=== PATIENT | female | born 1950 | race Caucasian/White ===

== ENCOUNTER 2019-12-04 20:59 | Emergency (ER) | payer OTHER, MEDICAID ==
[~2019-12-04] VITALS: Ht 162.6 cm; Wt 45.0 kg
[~2019-12-04 20:59] MED LIST: ALPR0.5T PO; ATOR20TA58 PO; CELE100C PO; DULO30CA2 PO; FLUO20CA16 PO; GABA-585 PO; HYDR-2765 PO; METH5TAB12 PO; NORG1TAB38 PO; OMEP40CA45 PO; RANI300C PO
[2019-12-04 21:19] VITALS: BP 150/89
[2019-12-04] MEDS ORDERED: CEPH-264 PO (22:08)
--- NOTE | 2019-12-04 22:08 | PHYS DOC ---
Past History Past Medical History: Arthritis, COPD, Fibromyalgia, IBS Past Surgical History: Hysterectomy Alcohol Use: None General Adult EDM: Chief Complaint: FOOT INJURY PAIN HPI: HPI: 69-year-old female presents with right foot pain. She has had some discomfort in his foot for couple of days. Throughout the day today, she has had a redness and mild swelling that has increased on the top of her foot. She told her daughter that the pain has gotten worse. There is no obvious cut, but the patient does have dry peeling skin. She denies trauma. She denies fever chills. She has no other complaints at this time. Review of Systems: Review of Systems: Constitutional: Denies fever or chills Eyes: Denies change in visual acuity HENT: Denies nasal congestion or sore throat Respiratory: Denies cough or shortness of breath Cardiovascular: Denies chest pain or edema GI: Denies abdominal pain, nausea, vomiting, bloody stools or diarrhea : Denies dysuria Musculoskeletal: Right foot pain Integument: Redness right foot Neurologic: Denies headache, focal weakness or sensory changes Endocrine: Denies polyuria or polydipsia Lymphatic: Denies swollen glands Psychiatric: Denies depression or anxiety Heart Score: Risk Factors: Risk Factors: DM, Current or recent (<one month) smoker, HTN, HLP, family history of CAD, obesity. Risk Scores: Score 0 - 3: 2.5% MACE over next 6 weeks - Discharge Home Score 4 - 6: 20.3% MACE over next 6 weeks - Admit for Clinical Observation Score 7 - 10: 72.7% MACE over next 6 weeks - Early Invasive Strategies Allergies: Allergies: Allergies Coded Allergies Type Severity Reaction Last Updated Verified No Known Drug Allergies 01/10/14 No Physical Exam: PE: Constitutional: Well developed, well nourished, no acute distress, non-toxic appearance. [] HENT: Normocephalic, atraumatic, bilateral external ears normal, oropharynx moist, no oral exudates, nose normal. [] Eyes: PERRLA, EOMI, conjunctiva normal, no discharge. [] Neck: Normal range of motion, no tenderness, supple, no stridor. [] Cardiovascular:Heart rate regular rhythm, no murmur [] Lungs & Thorax: Bilateral breath sounds clear to auscultation [] Abdomen: Bowel sounds normal, soft, no tenderness, no masses, no pulsatile masses. [] Skin: Warm, dry, no erythema, no rash. [] Back: No tenderness, no CVA tenderness. [] Extremities: Dorsum of the right foot with erythema, warmth; plantar surface with ecchymosis. No obvious laceration or cut. [] Neurologic: Alert and oriented X 3, normal motor function, normal sensory function, no focal deficits noted. [] Psychologic: Affect normal, judgement normal, mood normal. [] Current Patient Data: Vital Signs: Vital Signs Date Time Temp Pulse Resp B/P (MAP) Pulse Ox O2 Delivery O2 Flow Rate FiO2 12/04/19 21:19 97.6 86 19 150/89 (109) 100 Room Air EKG: EKG: [] Radiology/Procedures: Radiology/Procedures: [] Impressions: Exam: Right foot 3 views INDICATION: Swelling/pain TECHNIQUE: Frontal, lateral and oblique views of the right foot Comparisons: None FINDINGS: Diffuse osteopenia. No acute or healed fractures. Soft tissues are unremarkable. Joint spaces are well-maintained. IMPRESSION: Diffuse osteopenia without underlying osseous abnormality identified. Electronically signed by: Dari Bravo MD (12/04/2019 10:59 PM) [id number] DICTATED AND SIGNED BY: DARI BRAVO MD DATE: 12/04/19 2259 CC: LILIAN SINGLETARY DO; KISHOR MARINA ~ Course & Med Decision Making: Course & Med Decision Making Pertinent Labs and Imaging studies reviewed. (See chart for details) The patient's x-rays not show any fracture. This appears to be simple cellulitis at this time. I have placed her on Keflex for 7 days. If the redness continues to spread the patient will come back to the hospital be admitted for IV antibiotics. She is stable for discharge at this time. [] Dragon Disclaimer: Dragon Disclaimer: This electronic medical record was generated, in whole or in part, using a voice recognition dictation system. Departure Departure: Impression: Primary Impression: Cellulitis of right foot Disposition: 01 HOME/RESIDENCE PRIOR TO ADM Condition: STABLE Referrals: KISHOR MARINA (PCP) Patient Instructions: Cellulitis, [id number] Scripts Cephalexin (KEFLEX) 500 Mg Capsule 1 CAP PO TID for cellulitis for 7 Days, #21 CAP 0 Refills Prov: LILIAN SINGLETARY DO 12/04/19 LILIAN SINGLETARY DO Dec 04, 2019 22:08
[2019-12-04] MEDS ORDERED: CEPHALEXIN 250 MG CAPSULE PO ONE (22:15)
--- NOTE | 2019-12-04 23:02 | RAD ---
Exam: Right foot 3 views INDICATION: Swelling/pain TECHNIQUE: Frontal, lateral and oblique views of the right foot Comparisons: None FINDINGS: Diffuse osteopenia. No acute or healed fractures. Soft tissues are unremarkable. Joint spaces are well-maintained. IMPRESSION: Diffuse osteopenia without underlying osseous abnormality identified. Electronically signed by: Ariadna Chandler MD (12/04/2019 10:59 PM) [id number]
== END 2019-12-04 23:23 | disposition home or self-care (01) ==
LOC: ER 20:59
DX: S90.31XA Contusion of right foot, initial encounter (principal); L03.115 Cellulitis of right lower limb; J44.9 Chronic obstructive pulmonary disease, unspecified; M79.7 Fibromyalgia; M19.90 Unspecified osteoarthritis, unspecified site; K58.9 Irritable bowel syndrome, unspecified; X58.XXXA Exposure to other specified factors, initial encounter; Y93.89 Activity, other specified; Y92.89 Other specified places as the place of occurrence of the external cause; Y99.8 Other external cause status
CPT/HCPCS: 73630; 99283

== ENCOUNTER 2020-07-20 15:39 | Emergency (ER) | payer OTHER, MEDICAID ==
[~2020-07-20] VITALS: Ht 160 cm; Wt 39.0 kg
[~2020-07-20 15:39] MED LIST changes: +CEPH-264 PO
--- NOTE | 2020-07-20 16:12 | PHYS DOC ---
Past History Past Medical History: Arthritis, COPD, Fibromyalgia, IBS (SUSANNE JONES APRN) Past Surgical History: Hysterectomy (SUSANNE JONES APRN) Alcohol Use: None (SUSANNE JONES APRN) General Adult EDM: Chief Complaint: DIZZY/LIGHT HEADED HPI: HPI: Patient is a 69-year-old female who presents with dizziness, nausea, weakness. Daughter states "she acts very confused like she does not know what is going on and she act like she had trouble getting out of the car only got to the emergency room". Patient reports that she broke out into a cold sweat and also had nausea. Daughter states "she has lost 11 pounds in the last month because she needs her esophagus stretched". denies vomiting/diarrhea, fever, recent illness. Denies pain. History of COPD, migraines, neuropathy, fibromyalgia. (SUSANNE JONES APRN) Review of Systems: Review of Systems: Constitutional: Denies fever or chills Eyes: Denies change in visual acuity HENT: Denies nasal congestion or sore throat Respiratory: Denies cough or shortness of breath Cardiovascular: Denies chest pain or edema GI: Denies abdominal pain, vomiting, diarrhea. Reports nausea. : Denies dysuria Musculoskeletal: Denies back pain or joint pain Integument: Denies rash Neurologic: Denies headache, patient reports weakness and dizziness Endocrine: Denies polyuria or polydipsia Lymphatic: Denies swollen glands Psychiatric: Denies depression or anxiety (SUSANNE JONES APRN) Allergies: Allergies: Allergies Coded Allergies Type Severity Reaction Last Updated Verified No Known Drug Allergies 01/10/14 No (SUSANNE JONES APRN) Physical Exam: PE: Constitutional: Well developed, well nourished, no acute distress, non-toxic appearance. [] HENT: Normocephalic, atraumatic, bilateral external ears normal, oropharynx moist, no oral exudates, nose normal. [] Eyes: PERRLA, EOMI, conjunctiva normal, no discharge. [] Neck: Normal range of motion, no tenderness, supple, no stridor. [] Cardiovascular:Heart rate regular rhythm, no murmur [] Lungs & Thorax: Bilateral breath sounds clear to auscultation [] Abdomen: Bowel sounds normal, soft, no tenderness, no masses, no pulsatile masses. [] Skin: Warm, dry, no erythema, no rash. [] Back: No tenderness, no CVA tenderness. [] Extremities: No tenderness, no cyanosis, no clubbing, ROM intact, no edema. [] Neurologic: Alert and oriented X 3, normal motor function, normal sensory function, no focal deficits noted. [] Psychologic: Affect normal, judgement normal, mood normal. [] (SUSANNE JONES APRN) EKG: EKG: [] (SUSANNE JONES APRN) Radiology/Procedures: Radiology/Procedures: []EXAM: Head CT without contrast. HISTORY: Dizziness. TECHNIQUE: Computed tomographic images of the head were obtained without contrast. *One or more of the following individualized dose reduction techniques were utilized for this examination: 1. Automated exposure control. 2. Adjustment of the mA and/or kV according to patient size. 3. Use of iterative reconstruction technique. COMPARISON: None. FINDINGS: There is no acute or subacute extra-axial or intraparenchymal hemorrhage. There is no mass effect or midline shift. There is no hydrocephalus. There are areas of decreased attenuation within the cerebral white matter, nonspecific and likely related to chronic small vessel disease. The visualized portions of the orbits, paranasal sinuses and mastoid air cells are unremarkable. No suspicious calvarial lesion is seen. IMPRESSION: No acute intracranial findings. Electronically signed by: Annel Zhang MD (07/20/2020 4:45 PM) [id number] / EXAM: Chest, single view. HISTORY: Dizzy. COMPARISON: None. FINDINGS: A frontal view of the chest is obtained. There is no infiltrate, pleural fusion or pneumothorax. The heart is normal in size. There is a nipple shadow overlying the left lower lobe. IMPRESSION: No acute pulmonary finding. Electronically signed by: Annel Zhang MD (07/20/2020 4:46 PM) [id number] (SUSANNE JONES APRN) Heart Score: C/O Chest Pain: No Risk Factors: Risk Factors: DM, Current or recent (<one month) smoker, HTN, HLP, family history of CAD, obesity. Risk Scores: Score 0 - 3: 2.5% MACE over next 6 weeks - Discharge Home Score 4 - 6: 20.3% MACE over next 6 weeks - Admit for Clinical Observation Score 7 - 10: 72.7% MACE over next 6 weeks - Early Invasive Strategies (SUSANNE JONES APRN) Course & Med Decision Making: Course & Med Decision Making Pertinent Labs and Imaging studies reviewed. (See chart for details) [] 69-year-old female with a chief complaint of dizziness, weakness. Patient states about an hour ago she started feeling like she was spinning, nausea, cold sweat. Patient alert and oriented x3. Patient's only reporting weakness and dizziness this at this time. CT head ordered to rule out intracranial bleeding or acute abnormality. CT of head is negative for intracranial bleeding. Labs unremarkable. UA was positive for infection. Patient sent home with Keflex. Patients blood sugar was 76 on arrival. Instructed daughter on checking blood sugar the next time patient has an episode to rule out hypoglycemia. Mom and daughter both agree with discharge plan and are appreciative. Instructed patient to increase fluids. (SUSANNE JONES APRN) Dragon Disclaimer: Dragon Disclaimer: This electronic medical record was generated, in whole or in part, using a voice recognition dictation system. (SUSANNE JONES APRN) Attending Co-Sign The patient was seen and interviewed as well as examined at the bedside. The chart was reviewed. The case was discussed. Agree with the plan of care. (LILIAN SINGLETARY DO) Departure Departure: Impression: Primary Impression: UTI (urinary tract infection) Qualified Codes: N30.01 - Acute cystitis with hematuria Disposition: HOME / SELF CARE / HOMELESS Condition: STABLE Referrals: KISHOR MARINA (PCP) Patient Instructions: Hypoglycemia (Low Blood Sugar), Urinary Tract Infection, [id number] Additional Instructions: EMERGENCY DEPARTMENT GENERAL DISCHARGE INSTRUCTIONS Thank you for coming to [facility] (ED) today and trusting us with you care. We trust that you had a positivie experience in our Emergency Department. If you wish to speak to the department management, you may call the director at [phone]. YOUR FOLLOW UP INSTRUCTIONS ARE FOLLOWS: 1. Do you have a private Doctor? If you do not have a private doctor, please ask for a resource list of physicians or clinics that may be able to assist you with follow up care. 2. The Emergency Physician has interpreted your x-rays. The X-Ray specialist will also review them. If there is a change in the findings, you will be notified in 48 hours when at all possible. 3. A lab test or culture has been done, your results will be reviewed and you will be notified if you need a change in treatment. ADDITIONAL INSTRUCTIONS AND INFORMATION: 1. Your care today has been supervised by a physician who is specially trained in emergency care. Many problems require more than one evaluation for a complete diagnosis and treatment. We recommend that you schedule your follow up appointment as recommended to ensure complete treatment of you illness or injury. If you are unable to obtain follow up care and continue to have a problem, or if your condition worsens, we recommend that you return to the ED. 2. We are not able to safely determine your condition over the phone nor are we able to give sound medical advice over the phone. For these safety reasons, if you call for medical advice we will ask you to come to the ED for further evaluation. 3. If you have any questions regarding these discharge instructions please call the ED at [phone]. SAFETY INFORMATION: In the interest of safety, wellness, and injury prevention; we encourage you to wear your sealbelt, if you smoke; quite smoking, and we encourage family to use a protective helmet for bicycling and other sporting events that present an increased risk for head injury. IF YOUR SYMPTOMS WORSEN OR NEW SYMPTOMS DEVELOP, OR YOU HAVE CONCERNS ABOUT YOUR CONDITION; OR IF YOUR CONDITION WORSENS WHILE YOU ARE WAITING FOR YOUR FOLLOW UP APPOINTMENT; EITHER CONTACT YOUR PRIMARY CARE DOCTOR, THE PHYSICIAN WHOSE NAME AND NUMBER YOU WERE GIVEN, OR RETURN TO THE ED IMMEDIATELY. Scripts Cephalexin (CEPHALEXIN) 500 Mg Capsule 500 MG PO BID for infection for 5 Days, #10 CAP Prov: SUSANNE JONES APRN 07/20/20 SUSANNE JONES APRN July 20, 2020 16:12 LILIAN SINGLETARY DO July 23, 2020 23:42
[2020-07-20] MEDS ORDERED: IV NORMAL SALINE 1,000ML 1,000 ML IV ONE (16:15)
[2020-07-20 16:34] LABS: BASO # 0.1 x10^3/uL (0.0-0.2); BASO % 1 % (0-3); EOS # 0.1 x10^3/uL (0.0-0.7); EOS % 1 % (0-3); HEMATOCRIT 40.6 % (36.0-47.0); HEMOGLOBIN 13.5 g/dL (12.0-15.5); LYMPH # 2.5 x10^3/uL (1.0-4.8); LYMPH % 21 % (24-48); MEAN CORPUSCULAR HEMOGLOBIN 32 pg (25-35); MEAN CORPUSCULAR HGB CONC 33 g/dL (31-37); MEAN CORPUSCULAR VOLUME 96 fL (79-100); MONO # 0.9 x10^3/uL (0.0-1.1); MONO % 8 % (0-9); NEUT # 8.3 x10^3uL (1.8-7.7); NEUT % 70 % (31-73); PLATELET COUNT 216 x10^3/uL (140-400); RED BLOOD COUNT 4.22 x10^6/uL (3.50-5.40); RED CELL DISTRIBUTION WIDTH 13.6 % (11.5-14.5); WHITE BLOOD COUNT 11.9 x10^3/uL (4.0-11.0)
[2020-07-20 16:42] LABS: CALCIUM 8.9 mg/dL (8.5-10.1); CREATININE 0.8 mg/dL (0.6-1.0); GFR 71.1; POTASSIUM 3.4 mmol/L (3.5-5.1)
[2020-07-20 16:47] LABS: ALBUMIN 3.9 g/dL (3.4-5.0); ALBUMIN/GLOBULIN RATIO 1.2 (1.0-1.7); TOTAL BILIRUBIN 0.3 mg/dL (0.2-1.0); TOTAL PROTEIN 7.2 g/dL (6.4-8.2)
--- NOTE | 2020-07-20 16:48 | RAD ---
EXAM: Chest, single view. HISTORY: Dizzy. COMPARISON: None. FINDINGS: A frontal view of the chest is obtained. There is no infiltrate, pleural fusion or pneumoth orax. The heart is normal in size. There is a nipple shadow overlying the left lower lobe. IMPRESSION: No acute pulmonary finding. Electronically signed by: Annel Zhang MD (07/20/2020 4:46 PM) [id number]
--- NOTE | 2020-07-20 16:48 | RAD ---
EXAM: Head CT without contrast. HISTORY: Dizziness. TECHNIQUE: Computed tomographic images of the head were obtained without contrast. *One or more of the following individualized dose reduction techniques were utilized for this examina tion: 1. Automated exposure control. 2. Adjustment of the mA and/or kV according to patient size. 3. Use of iterative reconstruction technique. COMPARISON: None. FINDINGS: There is no acute or subacute extra-axial or intraparenchymal hemorrhage. There is no mass effect or midline shift. There is no hydrocephalus. There are areas of decreased attenuation within the cerebral white matter, nonspecific and likely rel ated to chronic small vessel disease. The visualized portions of the orbits, paranasal sinuses and mastoid air cells are unremarkable. No s uspicious calvarial lesion is seen. IMPRESSION: No acute intracranial findings. Electronically signed by: Annel Zhang MD (07/20/2020 4:45 PM) [id number]
[2020-07-20 17:23] LABS: BILIRUBIN,URINE NEG (NEG); CLARITY,URINE CLEAR; COLOR,URINE STRAW; GLUCOSE,URINE NEG (NEG); NITRITE,URINE NEG (NEG); UROBILINOGEN,URINE 0.2 mg/dL (0.2 mg/dL)
[2020-07-20 17:24] LABS: BACTERIA,URINE FEW /HPF (0-FEW)
[2020-07-20 17:45] VITALS: BP 162/75
[2020-07-20] MEDS ORDERED: CEPH500C PO (18:05)
--- NOTE | 2020-07-20 21:22 | EKG ---
[address] [address] Test Date: 2020-07-20 Test Time: 16:15:53 Pat Name: BILLIE MARQUEZ Department: Room: Gender: F [employer] Machine Operator: : [id number] Requested By: SUSANNE JONES Order Number: [id number] Reading MD: Measurements Intervals [place] Rate: 78 P: 90 MA: 134 QRS: 74 QRSD: 72 T: 69 QT: 394 QTc: 453 Interpretive Statements SINUS RHYTHM OTHERWISE NORMAL ECG RI6.02 No previous ECG available for comparison
== END 2020-07-20 18:20 | disposition home or self-care (01) ==
LOC: ER 15:39
DX: N30.01 Acute cystitis with hematuria (principal); M19.90 Unspecified osteoarthritis, unspecified site; J44.9 Chronic obstructive pulmonary disease, unspecified; M79.7 Fibromyalgia; K58.9 Irritable bowel syndrome, unspecified; Z90.710 Acquired absence of both cervix and uterus
CPT/HCPCS: 36415; 70450; 71045; 80053; 81001; 82947; 84484; 85025; 87086; 93005; 96360; 99285; J7030

== ENCOUNTER → 2020-10-02 | Outpatient (CLI) | payer OTHER, MEDICAID ==
[~2020-10-02] MED LIST changes: +CEPH500C PO; -OMEP40CA45 PO; +OMEP40CA7 PO
--- NOTE | 2020-10-02 15:30 | RAD ---
XR CHEST 2V History: Reason: SOB / Spl. Instructions: / History: Comparison: July 20, 2020 Findings: Hyperinflation. No consolidation or pleural effusion. Normal heart size. No pneumothorax. Impression: 1. Hyperinflation. No new consolidation. Electronically signed by: Jose Bearden DO (10/02/2020 3:27 PM) [id number]
== END ==
LOC: RAD 15:05
PROVIDERS: ATTEND Nurse Practitioner Family
DX: J06.9 Acute upper respiratory infection, unspecified (principal)
CPT/HCPCS: 71046

== ENCOUNTER → 2020-10-04 | Outpatient (CLI) | payer OTHER, MEDICAID, MEDICARE ==
--- NOTE | 2020-10-04 12:14 | RAD ---
Indications: Fall and pain THREE-VIEW LEFT ELBOW STUDY: No joint effusion is seen. No acute fracture or dislocation or lytic pro cess is seen. TWO-VIEW STUDY OF THE LEFT HIP AND AP VIEW OF THE PELVIS: No acute fracture dislocation of the left h ip is seen. No acute fracture of the pelvic bones is evident. The right hip joint is normally aligned . No diastases of the symphysis pubis or either SI joint is seen. THREE-VIEW LEFT SHOULDER STUDY: No acute fracture or dislocation or lytic process is evident. No AC j oint separation is seen. IMPRESSION: No acute fracture. Electronically signed by: Yassine Willis MD (10/04/2020 12:12 PM) [id number]
--- NOTE | 2020-10-04 12:25 | RAD ---
XR RIBS MIN 3 VIEWS LT W/PA CHEST 10/04/2020 11:43 AM INDICATION: Fall COMPARISON: Chest radiograph 10/02/2020 TECHNIQUE: Portable frontal view of the chest is provided. 3 views of the left ribs are provided. FINDINGS: The cardiomediastinal silhouette is within normal limits. Lungs are clear. Soft tissue nodule identif ied within the right lower lobe measuring 8.5 mm. There are no significant pleural effusions. There is no pulmonary vascular congestion. No pneumothora x. No suspicious osseous abnormality. No acutely displaced left-sided rib fracture. IMPRESSION: There is no acute cardiopulmonary process. 8.5 mm soft tissue nodule in the right upper lobe. CT ches t without contrast for further evaluation. No acutely displaced left-sided rib fracture identified. Electronically signed by: Michaela Thomas MD (10/04/2020 12:22 PM) [id number]
== END ==
LOC: PMG 11:27
PROVIDERS: ATTEND Physician Assistant
DX: S50.02XA Contusion of left elbow, initial encounter (principal); S70.02XA Contusion of left hip, initial encounter; S20.212A Contusion of left front wall of thorax, initial encounter; S40.012A Contusion of left shoulder, initial encounter; R91.1 Solitary pulmonary nodule; X58.XXXA Exposure to other specified factors, initial encounter; Y93.89 Activity, other specified; Y92.89 Other specified places as the place of occurrence of the external cause; Y99.8 Other external cause status
CPT/HCPCS: 71101; 73030; 73080; 73502

== ENCOUNTER 2020-10-08 13:17 | Emergency (ER) | payer OTHER, MEDICAID ==
[~2020-10-08] VITALS: Ht 157.5 cm; Wt 49.0 kg
[2020-10-08 13:40] VITALS: BP 115/74
--- NOTE | 2020-10-08 13:48 | PHYS DOC ---
Past History Past Medical History: Arthritis, COPD, Fibromyalgia, IBS, Migraines (GABBY BRAXTON APRN) Past Surgical History: No Surgical History (GABBY BRAXTON APRN) Alcohol Use: None (GABBY BRAXTON APRN) General Adult EDM: Chief Complaint: COUGH HPI: HPI: Patient is a 70-year-old female being seen in the ER for worsening cough. Patient was diagnosed with COVID-19 on Monday and her family sent her into the ER because they are afraid she might be developing a pneumonia. Patient has no other complaints, no nausea, vomiting, no chest pain. Patient denies worsening shortness of breath or fevers. Patient's vital signs are stable and she is in no acute distress. (GABBY BRAXTON APRN) Review of Systems: Review of Systems: 14 body systems of the review of systems have been reviewed. See HPI for pertinent positive and negative responses, otherwise all other systems are negative, nonpertinent or noncontributory (GABBY BRAXTON APRN) Allergies: Allergies: Allergies Coded Allergies Type Severity Reaction Last Updated Verified No Known Drug Allergies 01/10/14 No (GABBY BRAXTON APRN) Physical Exam: PE: Constitutional: Well developed, well nourished, no acute distress, non-toxic appearance. [] HENT: Normocephalic, atraumatic, bilateral external ears normal, oropharynx moist, no oral exudates, nose normal. [] Eyes: PERRL, conjunctiva normal, no discharge. [] Neck: Normal range of motion, no stridor Cardiovascular:Heart rate regular rhythm, no murmur [] Lungs & Thorax: Bilateral breath sounds clear to auscultation, patient non labored, no hypoxia, able to speak in full sentences, no accessory muscle use, no tachypnea [] Abdomen: Bowel sounds normal, soft, no tenderness, no masses, no pulsatile masses. [] Skin: Warm, dry, no erythema, no rash. [] Back: Normal range of motion Extremities: No tenderness, no cyanosis, no clubbing, ROM intact, no edema. [] Neurologic: Alert and oriented X 3, normal motor function, normal sensory function, no focal deficits noted. [] Psychologic: Affect normal, judgement normal, mood normal. [] (GABBY BRAXTON APRN) Current Patient Data: Vital Signs: Vital Signs Date Time Temp Pulse Resp B/P (MAP) Pulse Ox O2 Delivery O2 Flow Rate FiO2 10/08/20 13:40 99.5 74 18 115/74 100 Room Air (GABBY BRAXTON APRN) EKG: EKG: EKG performed by ER staff 1412 shows sinus rhythm, no STEMI as read by Dr. Singletary 1417. [] (GABBY BRAXTON APRN) Radiology/Procedures: Radiology/Procedures: []PROCEDURE: PORTABLE CHEST 1V EXAM: Chest, single view. HISTORY: Cough. Covid 19. COMPARISON: None. FINDINGS: A frontal view of the chest is obtained. There is no infiltrate, pleural effusion or pneumothorax. The heart is normal in size. There is a circumscribed nodule overlying the left mid to lower thorax, stable compared to the prior study and likely due to a nipple shadow. The heart is stable in size. IMPRESSION: No acute pulmonary finding. Electronically signed by: Annel Crook MD (10/08/2020 2:09 PM) [id number] DICTATED AND SIGNED BY: ANNEL CROOK MD DATE: 10/08/20 1408 CC: GABBY BRAXTON APRN; KISHOR MARINA ~MTH0 0 (GABBY BRAXTON APRN) Heart Score: C/O Chest Pain: No Risk Factors: Risk Factors: DM, Current or recent (<one month) smoker, HTN, HLP, family history of CAD, obesity. Risk Scores: Score 0 - 3: 2.5% MACE over next 6 weeks - Discharge Home Score 4 - 6: 20.3% MACE over next 6 weeks - Admit for Clinical Observation Score 7 - 10: 72.7% MACE over next 6 weeks - Early Invasive Strategies (GABBY BRAXTON APRN) Course & Med Decision Making: Course & Med Decision Making Pertinent Labs and Imaging studies reviewed. (See chart for details) [] Patient is a 70-year-old female who presents for worsening of her cough. Patient has COVID-19. Chest x-ray was performed and it showed no acute findings. Patient is nonlabored, no acute distress, vital signs stable, no hypoxia. I discussed with patient all findings and diagnostic testing as well as the need to follow-up with PCP for further evaluation and treatment or return to the ER if any new or worsening symptoms. Strict return precautions were also discussed at length. Patient voiced understanding and agreement with the plan. Patient is hemodynamically stable at the time of disposition. (GABBY BRAXTON APRN) Gaston Disclaimer: Gaston Disclaimer: This electronic medical record was generated, in whole or in part, using a voice recognition dictation system. (GABBY BRAXTON APRN) Attending Co-Sign The patient was seen and interviewed as well as examined at the bedside. The chart was reviewed. The case was discussed. Agree with the plan of care. (LILIAN SINGLETARY DO) Departure Departure: Impression: Primary Impression: COVID-19 Disposition: HOME / SELF CARE / HOMELESS Condition: GOOD Referrals: KISHOR MARINA (PCP) Patient Instructions: Cough, Adult Additional Instructions: You are seen in the ER for worsening of your cough. You have COVID-19. Chest x-ray was performed and you do not have a pneumonia. Your physical exam was reassuring. Please continue your medications as previously as prescribed for your COPD management. Please continue to self isolate as directed. You are being sent with a prescription for Tessalon for that you can take as needed for cough. Please rest and increase your fluids. You can take Tylenol or ibuprofen for pain or fevers. If you develop shortness of breath, chest pain, high fevers refractory to treatment, uncontrollable nausea or vomiting please return to the ER immediately. EMERGENCY DEPARTMENT GENERAL DISCHARGE INSTRUCTIONS Thank you for coming to [facility] (ED) today and trusting us with you care. We trust that you had a positivie experience in our Emergency Department. If you wish to speak to the department management, you may call the director at [phone]. YOUR FOLLOW UP INSTRUCTIONS ARE FOLLOWS: 1. Do you have a private Doctor? If you do not have a private doctor, please ask for a resource list of physicians or clinics that may be able to assist you with follow up care. 2. The Emergency Physician has interpreted your x-rays. The X-Ray specialist will also review them. If there is a change in the findings, you will be notified in 48 hours when at all possible. 3. A lab test or culture has been done, your results will be reviewed and you will be notified if you need a change in treatment. ADDITIONAL INSTRUCTIONS AND INFORMATION: 1. Your care today has been supervised by a physician who is specially trained in emergency care. Many problems require more than one evaluation for a complete diagnosis and treatment. We recommend that you schedule your follow up appointment as recommended to ensure complete treatment of you illness or injury. If you are unable to obtain follow up care and continue to have a problem, or if your condition worsens, we recommend that you return to the ED. 2. We are not able to safely determine your condition over the phone nor are we able to give sound medical advice over the phone. For these safety reasons, if you call for medical advice we will ask you to come to the ED for further evaluation. 3. If you have any questions regarding these discharge instructions please call the ED at [phone]. SAFETY INFORMATION: In the interest of safety, wellness, and injury prevention; we encourage you to wear your sealbelt, if you smoke; quite smoking, and we encourage family to use a protective helmet for bicycling and other sporting events that present an increased risk for head injury. IF YOUR SYMPTOMS WORSEN OR NEW SYMPTOMS DEVELOP, OR YOU HAVE CONCERNS ABOUT YOUR CONDITION; OR IF YOUR CONDITION WORSENS WHILE YOU ARE WAITING FOR YOUR FOLLOW UP APPOINTMENT; EITHER CONTACT YOUR PRIMARY CARE DOCTOR, THE PHYSICIAN WHOSE NAME AND NUMBER YOU WERE GIVEN, OR RETURN TO THE ED IMMEDIATELY. Scripts Benzonatate (TESSALON PERLE) 100 Mg Capsule 1 CAP PO TID PRN for COUGH for 3 Days, #9 CAP 0 Refills Prov: GABBY BRAXTON APRN 10/08/20 GABBY BRAXTON APRN Oct 08, 2020 13:48 LILIAN SINGLETARY DO Oct 11, 2020 21:00
--- NOTE | 2020-10-08 14:12 | RAD ---
EXAM: Chest, single view. HISTORY: Cough. Covid 19. COMPARISON: None. FINDINGS: A frontal view of the chest is obtained. There is no infiltrate, pleural effusion or pneumo thorax. The heart is normal in size. There is a circumscribed nodule overlying the left mid to lower thorax, stable compared to the prior study and likely due to a nipple shadow. The heart is stable in size. IMPRESSION: No acute pulmonary finding. Electronically signed by: Annel Zhang MD (10/08/2020 2:09 PM) [id number]
[2020-10-08] MEDS ORDERED: BENZ100C PO (14:17)
--- NOTE | 2020-10-08 14:55 | EKG ---
[address] [address] Test Date: 2020-10-08 Test Time: 14:12:33 Pat Name: BILLIE MARQUEZ Department: Room: Gender: F Analytical Laboratory Technician: PEDRO : 1950 Requested By: GABBY BRAXTON Order Number: [id number] Reading MD: Measurements Intervals [place] Rate: 86 P: 67 AR: 118 QRS: 65 QRSD: 74 T: 64 QT: 362 QTc: 436 Interpretive Statements SINUS RHYTHM OTHERWISE NORMAL ECG RI6.02 No previous ECG available for comparison
== END 2020-10-08 14:25 | disposition home or self-care (01) ==
LOC: ER 13:17
DX: U07.1 COVID-19 (principal); J44.9 Chronic obstructive pulmonary disease, unspecified
CPT/HCPCS: 71045; 93005; 99283

== ENCOUNTER 2020-10-12 16:04 | Emergency (ER) | payer OTHER, MEDICAID ==
[~2020-10-12] VITALS: Ht 157.5 cm; Wt 49.0 kg
[~2020-10-12 16:04] MED LIST changes: +BENZ100C PO
[2020-10-12 16:13] VITALS: BP 132/57
== END 2020-10-12 16:29 | disposition left against medical advice (07) ==
LOC: ER 16:04
DX: U07.1 COVID-19 (principal); Z53.21 Procedure and treatment not carried out due to patient leaving prior to being seen by health care provider

== ENCOUNTER → 2020-10-13 | Outpatient (CLI) | payer OTHER, MEDICAID ==
[2020-10-12 16:13] VITALS: BP 132/57
--- NOTE | 2020-10-13 13:29 | RAD ---
XR CHEST 2V History: Reason: COVID POSITIVE, COUGH AND FEVER / Spl. Instructions: / History: Comparison: AP chest October 08, 2020. Findings: The cardiomediastinal silhouette is normal. Pulmonary vasculature is normal. The lungs are clear. No pleural effusion or pneumothorax is seen. There is no acute bone abnormality. IMPRESSION: No acute cardiopulmonary process. Electronically signed by: Pa Chan MD (10/13/2020 1:26 PM) [facility]
[2020-10-13 13:51] LABS: BASO % 1 % (0-3); EOS % 0 % (0-3); HEMATOCRIT 40.3 % (36.0-47.0); HEMOGLOBIN 13.7 g/dL (12.0-15.5); LYMPH # 1.9 x10^3/uL (1.0-4.8); LYMPH % 34 % (24-48); MEAN CORPUSCULAR HEMOGLOBIN 32 pg (25-35); MEAN CORPUSCULAR HGB CONC 34 g/dL (31-37); MEAN CORPUSCULAR VOLUME 94 fL (79-100); MONO # 0.4 x10^3/uL (0.0-1.1); MONO % 7 % (0-9); NEUT # 3.3 x10^3uL (1.8-7.7); NEUT % 59 % (31-73); PLATELET COUNT 197 x10^3/uL (140-400); RED BLOOD COUNT 4.29 x10^6/uL (3.50-5.40); RED CELL DISTRIBUTION WIDTH 13.7 % (11.5-14.5); WHITE BLOOD COUNT 5.7 x10^3/uL (4.0-11.0)
[2020-10-13 13:57] LABS: ALBUMIN 3.1 g/dL (3.4-5.0); ALBUMIN/GLOBULIN RATIO 0.8 (1.0-1.7); CALCIUM 8.3 mg/dL (8.5-10.1); CREATININE 0.9 mg/dL (0.6-1.0); GFR 61.9; POTASSIUM 4.1 mmol/L (3.5-5.1); TOTAL BILIRUBIN 0.3 mg/dL (0.2-1.0); TOTAL PROTEIN 6.9 g/dL (6.4-8.2)
== END ==
LOC: RAD 13:05
PROVIDERS: ATTEND Family Medicine
DX: U07.1 COVID-19 (principal); R05 Cough
CPT/HCPCS: 36415; 71046; 80053; 85025

== ENCOUNTER → 2020-11-23 | Outpatient (CLI) | payer OTHER, MEDICAID ==
--- NOTE | 2020-11-23 14:28 | RAD ---
EXAM: CT Chest without IV contrast CLINICAL HISTORY: LUNG NODULE COMPARISON: None. TECHNIQUE: CT of the chest without intravenous contrast. Axial, coronal and sagittal reformatted imag es were generated. ---PQRS compliance statement - One or more of the following individualized dose reduction techniques were utilized for this study: 1. Automated exposure control 2. Adjustment of the mA and/or kV according to patient size 3. Use of iterative reconstruction technique--- FINDINGS: Lack of intravenous contrast limits evaluation of solid organs, vasculature, and lymph nodes. Chest: No axillary lymphadenopathy. Evaluation for mediastinal and hilar lymphadenopathy limited on this non contrast examination. Mildly prominent mediastinal lymph nodes are seen. Groundglass opacities lower lobes with interstitial prominence and bandlike opacities. Linear and ban dlike opacities likely scarring/atelectasis. 3 mm left upper lobe lung nodule seen (image 103). 3 mm middle lobe nodule (image 189). Coronary calcifications are seen. Heart is not enlarged. No pericardial effusion. No pleural effusion or pneumothorax. Visualized Upper abdomen: 8 mm left hepatic lobe hypodense lesion is nonspecific but may be cystic. R ight hepatic lobe hypodense lesion measures 9 mm, measures fluid density, likely cystic. Bones: No aggressive osseous lesion is seen. IMPRESSION: 1. Groundglass and patchy parenchymal opacities in the lower lobes bilaterally may represent infecti ous/inflammatory process. Imaging follow-up to resolution is recommended as underlying malignancy is recommended. 2. 3 mm lung nodules bilaterally. CT follow-up in about 12 months can be considered. 3. Background of emphysematous changes. Electronically signed by: Augustin Worrell MD (11/23/2020 2:26 PM) RAYSHAWN
== END ==
LOC: CT 11:09
PROVIDERS: ATTEND Family Medicine
DX: R91.8 Other nonspecific abnormal finding of lung field (principal); J43.9 Emphysema, unspecified; R59.0 Localized enlarged lymph nodes; I25.10 Atherosclerotic heart disease of native coronary artery without angina pectoris
CPT/HCPCS: 71250

== ENCOUNTER → 2021-01-07 | Outpatient (CLI) | payer OTHER, MEDICAID ==
--- NOTE | 2021-01-07 14:31 | RAD ---
EXAM: CT CHEST WITHOUT CONTRAST HISTORY: Lung nodule COMPARISON: CT chest 11/23/2020 TECHNIQUE: Helical CT of the chest performed without contrast. Coronal and sagittal reformats were o btained. One or more of the following individualized dose reduction techniques were utilized for this examinat ion: 1. Automated exposure control 2. Adjustment of the mA and/or kV according to patient size 3. Use of iterative reconstruction technique. FINDINGS: Thyroid gland and thoracic inlet: Normal. Heart and great vessels: There is normal in size. There are coronary artery calcifications. Thoracic aorta is normal in caliber. There is moderate calcified aortic atherosclerosis. Mediastinum and rupal: Prominent precarinal lymph node measuring 1 cm short axis is unchanged. Small r ight paratracheal lymph nodes are unchanged. Lungs and pleura: There is mild centrilobular emphysema. A 3 mm nodule in the right lower lobe is unc hanged (image 64). A 3 mm nodule in the right middle lobe and 3 mm nodule in the left upper lobe are unchanged (image 64 and 30, respectively). Bandlike subpleural ground glass opacities with interstiti al and cystic changes are redemonstrated. The groundglass component has decreased. No pleural effusio n. Central airways are clear. Chest wall and axillae: No axillary lymphadenopathy. The chest wall is unremarkable. Upper abdomen: There is a 1 cm simple cyst in the left hepatic lobe and several additional smaller corbett bcentimeter hypodensities in the right hepatic lobe, likely simple cysts. Multiple calcifications see n in the pancreas consistent with chronic pancreatitis. Bones: No acute osseous abnormality. IMPRESSION: 1. Decreased bandlike subpleural groundglass opacities with interstitial and cystic changes in the p osterior lower lobes. This could be resolving infectious or inflammatory process, or related to inter stitial lung disease. 2. There are few 3 mm nodules in the lungs that are unchanged. 3. Unchanged mild emphysema. 4. Unchanged prominent precarinal lymph node measuring 1 cm short axis, nonspecific. 5. Findings of chronic pancreatitis. Electronically signed by: Miguelina Gan MD (01/07/2021 2:29 PM) [id number]
== END ==
LOC: CT 13:06
PROVIDERS: ATTEND Family Medicine
DX: R91.8 Other nonspecific abnormal finding of lung field (principal); J43.9 Emphysema, unspecified; I25.10 Atherosclerotic heart disease of native coronary artery without angina pectoris; I70.0 Atherosclerosis of aorta; K76.89 Other specified diseases of liver; K86.89 Other specified diseases of pancreas
CPT/HCPCS: 71250

== ENCOUNTER 2021-07-03 20:39 | Emergency (ER) | payer OTHER, MEDICAID ==
[~2021-07-03] VITALS: Ht 157.5 cm; Wt 49.0 kg
--- NOTE | 2021-07-03 20:57 | PHYS DOC ---
Past History Past Medical History: Arthritis, COPD, Fibromyalgia, IBS, Migraines Past Surgical History: Other Alcohol Use: None Adult General Chief Complaint Chief Complaint: FACE PROBLEM HPI HPI Patient is a 70-year-old female who presents with left-sided face swelling that started last night, 5 out of 10 in pain, dull and achy in nature. Does have [place] PD and has been smoking for 50 years. Denies any recent traumas, travels, illness, fevers, pain or trouble swallowing, chest pain, shortness of breath, abdominal pain, nausea, vomiting, diarrhea. Denies any recent dental procedures. Denies any known ill contacts. Review of Systems Review of Systems Review of systems otherwise unremarkable except noted in HPI Allergies Allergies Allergies Coded Allergies Type Severity Reaction Last Updated Verified No Known Drug Allergies 01/10/14 No Physical Exam Physical Exam Constitutional: Well developed, well nourished, no acute distress, non-toxic appearance. [] HENT: Normocephalic, atraumatic, bilateral external ears normal, bilateral tympanic membranes normal, oropharynx moist, no oral exudates, nose normal, mild swelling and tenderness about the parotid gland just anterior to the ear with n o erythema Eyes: conjunctiva normal, no discharge. [] Neck: Normal range of motion, no tenderness, supple, no stridor. [] Cardiovascular:Heart rate regular rhythm, no murmur [] Lungs & Thorax: No respiratory distress Abdomen: soft, no tenderness, no masses, no pulsatile masses. [] Skin: Warm, dry, no erythema, no rash. [] Extremities: No tenderness, ROM intact, no edema. [] Neurologic: Alert and oriented X 3, normal motor function, normal sensory function, able to sit, stand and walk without issue, no focal deficits noted. [] Psychologic: Affect normal, judgement normal, mood normal. [] EKG EKG [] Radiology/Procedures Radiology/Procedures [] Heart Score C/O Chest Pain: No Risk Factors: Risk Factors: DM, Current or recent (<one month) smoker, HTN, HLP, family history of CAD, obesity. Risk Scores: Risk Factors: DM, Current or recent (<one month) smoker, HTN, HLP, family history of CAD, obesity. Course & Med Decision Making Course & Med Decision Making Patient is a 7-year-old female who presents with left-sided facial swelling Vital signs notable for hypertension. Physical exam noted above. Given medicines for pain. Given ice pack Laboratory and Alysis nonconcerning. CT notable for probable parotitis. Started on antibiotics in the ED Discussed symptom treatment at home. Advised to follow-up this week with primary care physician. Gave return precautions to the ED. Patient grateful, verbalized understanding and agreed to plan of discharge Gaston Disclaimer Dragon Disclaimer This electronic medical record was generated, in whole or in part, using a voice recognition dictation system. Departure Departure: Impression: Primary Impression: Parotitis Disposition: HOME / SELF CARE / HOMELESS Condition: STABLE Referrals: KISHOR MARINA (PCP) Patient Instructions: Parotitis Additional Instructions: Thank you for coming into the emergency department tonight and allowing us to take care of you. Please read the attached information carefully go over things we discussed. Please take your antibiotics as prescribed and until gone. You can use ice as well as you can use Tylenol, ibuprofen and Benadryl as well as ice as needed. Please follow-up in the morning with your primary care physician update on your ED visit and set up a follow-up as soon as you can. Please come back with new or concerning symptoms as discussed. Scripts Amoxicillin/Potassium Clav (AUGMENTIN 875-125 TABLET) 1 Each Tablet 1 TAB PO BID for parotitis for 10 Days, #20 TAB 0 Refills Prov: JAZMYN MOJICA MD 07/03/21 JAZMYN MOJICA MD Jul 03, 2021 20:56
[2021-07-03] MEDS ORDERED: KETOROLAC 15 MG/ML VIAL. IVP ONE (21:15)
[2021-07-03] MEDS ORDERED: IOHEXOL 300 MG/ML 75 ML VIAL. IV ONE (21:30)
[2021-07-03 21:36] LABS: BASO # 0.1 x10^3/uL (0.0-0.2); BASO % 1 % (0-3); EOS # 0.2 x10^3/uL (0.0-0.7); EOS % 2 % (0-3); HEMATOCRIT 38.2 % (36.0-47.0); HEMOGLOBIN 12.9 g/dL (12.0-15.5); LYMPH # 2.5 x10^3/uL (1.0-4.8); LYMPH % 23 % (24-48); MEAN CORPUSCULAR HEMOGLOBIN 33 pg (25-35); MEAN CORPUSCULAR HGB CONC 34 g/dL (31-37); MEAN CORPUSCULAR VOLUME 96 fL (79-100); MONO # 0.8 x10^3/uL (0.0-1.1); MONO % 7 % (0-9); NEUT # 7.3 x10^3uL (1.8-7.7); NEUT % 67 % (31-73); PLATELET COUNT 216 x10^3/uL (140-400); RED BLOOD COUNT 3.97 x10^6/uL (3.50-5.40); RED CELL DISTRIBUTION WIDTH 13.2 % (11.5-14.5); WHITE BLOOD COUNT 10.8 x10^3/uL (4.0-11.0)
[2021-07-03] MEDS ORDERED: CONTRAST GIVEN. MC PRN (21:45)
[2021-07-03 22:17] LABS: CALCIUM 8.1 mg/dL (8.5-10.1); CREATININE 0.8 mg/dL (0.6-1.0); GFR 70.9; POTASSIUM 3.6 mmol/L (3.5-5.1)
--- NOTE | 2021-07-03 22:17 | RAD ---
CT MAXILLOFACIAL WITH IV CONTRAST History: Left facial and neck swelling. Comparison: None. Technique: CT of the face with intravenous contrast. Findings: There are postsurgical changes of the lenses. Orbits are otherwise symmetric and normal. There is mild enlargement of the left parotid gland with inflammatory fat stranding in the overlying left facial soft tissues extending into the neck. No focal fluid collection is identified. A tiny den sity in the anterior left parotid measuring 2 mm diameter (axial image 31) may represent parotid duct stone. The submandibular glands are symmetric. No mucosal lesion in the nasal cavity, nasopharynx or oropharynx. The floor the mouth is unremarkable . Visualized vasculature is unremarkable. Numerous shotty left cervical lymph nodes are likely reacti ve. Osseous structures are unremarkable. Impression: 1. Asymmetric enlargement of the left parotid gland with inflammatory stranding of the adjacent subc utaneous fat consistent with sialoadenitis. Tiny subtle 2 mm density in the anterior left parotid may represent a parotid duct stone. 2. No abscess identified. Mild shotty left cervical lymph nodes likely reactive. ------ Exposure: One or more of the following individualized dose reduction techniques were utilized for thi s examination: 1. Automated exposure control 2. Adjustment of the mA and/or kV according to patient size 3. Use of iterative reconstruction technique. Electronically signed by: Fermín Amos MD (07/03/2021 10:15 PM) [facility]
[2021-07-03] MEDS ORDERED: AMOX1TAB61 PO (22:25)
[2021-07-03] MEDS ORDERED: AMOXICILLIN/K CLAV 875/125MG TABLET. ONE (22:27)
[2021-07-03] MEDS ORDERED: oxyCODONE/APAP 5/325 1 TAB TABLET ONE (22:27)
[2021-07-03 22:30] VITALS: BP 150/53
[2021-07-03] MEDS ORDERED: AMOXICILLIN/K CLAV 875/125MG TABLET. PO ONE (22:30)
[2021-07-03] MEDS ORDERED: oxyCODONE/APAP 5/325 1 TAB TABLET PO ONE (22:30)
== END 2021-07-03 22:39 | disposition home or self-care (01) ==
LOC: ER 20:39
DX: K11.20 Sialoadenitis, unspecified (principal); M19.90 Unspecified osteoarthritis, unspecified site; J44.9 Chronic obstructive pulmonary disease, unspecified; M79.7 Fibromyalgia; G43.909 Migraine, unspecified, not intractable, without status migrainosus
CPT/HCPCS: 36415; 70487; 80048; 85025; 96374; 99285; J1885